=== PATIENT | female | born 1985 | race Caucasian/White ===

== ENCOUNTER 2020-08-05 06:09 | Inpatient (IN) | payer OTHER ==
[~2020-08-05 06:09] MED LIST: ADDERALL 30 MG30 MG PO; COLACE100 MG PO; FIORICET1 EACH PO; FLONASE ALLER15.8 ML; IBUPROFEN800 MG PO; MEDROL 4MG DOSEP4 MG PO; NUVARING VAGIN1 EACH VG; PERCOCET 5-3251 EACH PO; PRENATAL FORMU1 EACH PO; VITAMIN D-32000 UNIT PO
[2020-08-05 07:00] LABS: HCT 31.9 % (37.0-47.0); HGB 11.1 g/dl (12.5-16.0); MCH 30.7 pg (25.0-31.0); MCHC 34.8 g/dL (32.0-36.0); MCV 88.1 fL (78.0-100.0); MPV 10.3 fL (6.0-9.5); RBC 3.62 M/uL (4.20-5.40); RDW 13.2 % (11.5-14.0); WBC 7.9 K/uL (4.0-10.5)
[2020-08-05 07:01] LABS: BILIRUBIN NEGATIVE (NEGATIVE); BLOOD 1+ Ery/uL (NEGATIVE); CLARITY CLEAR (CLEAR); COLOR YELLOW (YELLOW); GLUCOSE (U) NORMAL (NORMAL); LEUKOCYTES 1+ Leu/uL (NEGATIVE); NITRITE NEGATIVE (NEGATIVE); PROTEIN NEGATIVE (NEGATIVE); UROBILINOGEN 0.2 mg/dL (0.2-1.0)
[2020-08-05 07:13] LABS: BACTERIA TRACE
== END 2020-08-06 01:55 | disposition home or self-care (01) | DRG 806 ==
LOC: FOB 06:09
PROVIDERS: ADMIT Obstetrics & Gynecology
PROC: 10E0XZZ Delivery of Products of Conception, External Approach (ICD-10-PCS; principal; 2020-08-05)
PROC: 3E033VJ Introduction of Other Hormone into Peripheral Vein, Percutaneous Approach (ICD-10-PCS; 2020-08-05)
DX: O10.92 Unspecified pre-existing hypertension complicating childbirth (principal); O23.43 Unspecified infection of urinary tract in pregnancy, third trimester; Z37.0 Single live birth; Z3A.37 37 weeks gestation of pregnancy; O99.283 Endocrine, nutritional and metabolic diseases complicating pregnancy, third trimester; E04.9 Nontoxic goiter, unspecified; O69.81X0 Labor and delivery complicated by cord around neck, without compression, not applicable or unspecified; Z20.822 Contact with and (suspected) exposure to COVID-19
CPT/HCPCS: 36415; 80305; 81001; J7120; U0002

== ENCOUNTER 2021-10-12 01:17 | Emergency (ER) | payer OTHER ==
[2021-10-12 01:39] LABS: BILIRUBIN NEGATIVE (NEGATIVE); BLOOD 1+ Ery/uL (NEGATIVE); COLOR YELLOW (YELLOW); GLUCOSE (U) NORMAL (NORMAL); LEUKOCYTES NEGATIVE Leu/uL (NEGATIVE); NITRITE NEGATIVE (NEGATIVE); PROTEIN TRACE (LOW) mg/dL (NEGATIVE); UROBILINOGEN 0.2 mg/dL (0.2-1.0)
[2021-10-12 01:49] LABS: CLARITY SLIGHTLY HAZY (CLEAR)
[2021-10-12 01:50] LABS: BACTERIA TRACE
[2021-10-12 01:51] LABS: YEAST PRESENT
[2021-10-12 02:03] LABS: BASOPHIL 0.7 % (0-2); EOSINOPHIL 3.6 % (0-5); HCT 41.2 % (37.0-47.0); LYMPHOCYTE 36.2 % (15-48); MCH 28.3 pg (25.0-31.0); MCV 83.2 fL (78.0-100.0); MONOCYTE 6.2 % (0-12); MPV 9.3 fL (6.0-9.5); NEUTROPHIL 53.1 % (41-80); NRBC 0; PLT 460 K/uL (150-400); RBC 4.95 M/uL (4.20-5.40); RDW 12.5 % (11.5-14.0); WBC 8.5 K/uL (4.0-10.5)
[2021-10-12 02:12] LABS: ALBUMIN 3.3 g/dL (3.4-5.0); BILIRUBIN - TOTAL 0.2 mg/dL (0.2-1.0); BUN/CREAT RATIO (CALC) 15.4 RATIO; CREATININE 0.78 mg/dL (0.51-0.95); GLOBULIN (CALCULATION) 4.2 g/dL; POTASSIUM 3.6 mmol/L (3.5-5.1); TOTAL PROTEIN 7.5 g/dL (6.4-8.2)
== END 2021-10-12 08:20 | disposition other institution (70) ==
LOC: FER 01:17
PROVIDERS: Internal Medicine
DX: N13.0 Hydronephrosis with ureteropelvic junction obstruction (principal); I10 Essential (primary) hypertension; Z88.2 Allergy status to sulfonamides; Z88.8 Allergy status to other drugs, medicaments and biological substances; Z88.1 Allergy status to other antibiotic agents
CPT/HCPCS: 36415; 80053; 81001; 83690; 84145; 85025; J1170; J1885; J2765; J7120

== ENCOUNTER 2021-12-23 17:49 | Emergency (ER) | payer OTHER ==
[2021-12-23 19:31] LABS: BASOPHIL 0.6 % (0-2); EOSINOPHIL 1.7 % (0-5); HCT 41.5 % (37.0-47.0); LYMPHOCYTE 31.6 % (15-48); MCH 28.7 pg (25.0-31.0); MCHC 33.7 g/dL (32.0-36.0); MONOCYTE 4.3 % (0-12); NEUTROPHIL 61.6 % (41-80); NRBC 0; PLT 397 K/uL (150-400); RBC 4.88 M/uL (4.20-5.40); RDW 13.2 % (11.5-14.0)
[2021-12-23 19:48] LABS: CREATININE 0.63 mg/dL (0.51-0.95); POTASSIUM 3.5 mmol/L (3.5-5.1)
[2021-12-23] MEDS ORDERED: PRINIVIL10 MG PO (22:30)
== END 2021-12-23 22:40 | disposition home or self-care (01) ==
LOC: FER 17:49
PROVIDERS: Nurse Practitioner Family
DX: I10 Essential (primary) hypertension (principal); Z88.1 Allergy status to other antibiotic agents; Z88.2 Allergy status to sulfonamides
CPT/HCPCS: 36415; 71045; 80048; 85025; 93005; J0360